=== PATIENT | female | born 1950 | race African-American/Black ===

== ENCOUNTER 2017-10-07 07:33 | Day surgery (SDC) | payer MEDICARE ==
[2017-10-07] MEDS ORDERED: NS 0.9% VIAL 10 ML ONE (08:02)
[2017-10-07] MEDS ORDERED: DUOVISC 1 KIT OPTH ONE (08:03)
[2017-10-07] MEDS ORDERED: LIDOCAINE 2% MPF 5 ML VIAL ONE (09:35)
[2017-10-07] MEDS ORDERED: TETRACAINE HCL 0.5% 2ML OPTH ONE (09:36)
[2017-10-07] MEDS ORDERED: LIDOCAINE HCL/PF 3.5% OPTH GEL ONE (09:37)
[2017-10-07] MEDS ORDERED: NA CHLORIDE 0.9% 500 ML ONE (09:37)
[2017-10-07] MEDS ORDERED: BUPIVACAINE 0.25% PF 30 ML VIAL ONE (09:37)
[2017-10-07] MEDS: PHENYLEPHRINE 10% OPTH 5ML ONE ×3 (09:45→09:55)
[2017-10-07] MEDS: CYCLOPENTOLATE 1% OPTH 2 ML ONE ×3 (09:45→09:55)
[2017-10-07] MEDS ORDERED: EPINEPHRINE/PF 1 MG/ML AMP ONE (09:56)
[2017-10-07] MEDS ORDERED: TRYPAN BLUE 0.5 ML SYR OPTH ONE (10:34)
[2017-10-07] MEDS ORDERED: MIDAZOLAM HCL 2 MG/2 ML INJ ONE (10:35)
[2017-10-07] MEDS ORDERED: FENTANYL CITR 100 MCG/2 ML ONE (10:35)
[2017-10-07] MEDS: LIDOCAINE 1% MPF 2 ML AMPULE ONE ×3 (10:39→10:54)
[2017-10-07] MEDS: BALANCED SALT IRRIG PLAIN 500 ML BTL IRR ONE ×2 (10:39→10:50)
[2017-10-07] MEDS: EPINEPHRINE/PF 1 MG/ML AMP ONE ×2 (10:40→10:50)
[2017-10-07] MEDS: MOXIFLOXACIN HCL 10 DROPS/ML **OR USE OPTH ONE ×2 (10:55→11:12)
--- NOTE | 2017-10-07 11:20 | P.BOP ---
Preoperative diagnosis: Nuclear sclerotic and cortical cataract OS Postoperative diagnosis: Same Primary procedure: Phacoemulsification with IOL, complex with use of trypan blue OS Estimated blood loss: None Anesthesia: Local (Topical) Complications: None Implants: [id number] +19.0 Transferred to: Other (Day surgery) Condition: Good
--- NOTE | 2017-10-07 22:53 | OP ---
Date of Procedure: 10/07/2017 Surgeon: Mary Rowley MD Anesthesiologist: 1. Yusra. 2. LANDRY Zambrano. 3. Cristhian No MD. Preoperative Diagnosis: Nuclear sclerotic and cortical cataract, (left eye). Operation Performed: Phacoemulsification with intraocular lens implant left eye complex with use of trypan blue. Anesthesia: Per cataract surgery. Complications: None. Description Of The Procedure: The patient was prepped with Betadine in day surgery. A drape was jennifer chelo over the left eye. A lid speculum was placed in the left eye. A conjunctival incision was made in the inferior nasal quadrant with Latoya scissors. A 1:1 mixture of 2% Xylocaine and 0.25% bupiv acaine was placed around the globe. Approximately 5 mL were used. A Honan balloon was placed on the eye for approximately 5 minutes. The patient was then transferred to the operative room where they were prepped and draped in the usual sterile fashion for ophthalmic surgery. A lid speculum was plac ed in the left eye. There was poor red reflex and a decision was made to use trypan blue. Paracente sis sites were made superiorly and inferiorly in the limbal cornea. Air was placed in the anterior c hamber. This was followed by trypan blue and then balanced salt solution was used to rinse out the t rypan blue from the eye. Viscoat was placed in the eye. The temporal conjunctiva was cut at the quiñones bus with Latoya scissors. A crescent blade was used to create a tunnel incision in the temporal co rnea. A keratome was used to enter the anterior chamber. Provisc was placed in the eye. A 360 degr ee capsulotomy was performed with a cystitome. The lens was hydrated with balanced salt solution and moved freely. The lens was removed in a stop and chop fashion. 3.96 CDE was required. Irrigation and aspiration were used to remove residual cortex. Provisc was placed in the eye and a ZCB 00+ 19.0 diopter lens was placed in the capsular bag without complications. Irrigation and aspiration were u sed to remove residual Viscoat. The paracentesis sites were hydrated with balanced salt solution. T he wound and paracentesis sites were inspected and found to be watertight. Intracameral Vigamox 0.07 cc was injected at the end of the procedure. The eye was irrigated with balanced salt solution. Th e eye was patched with a soft cotton patch and Casillas metal shield and the patient was returned to day s the [facility] in good condition. Comments: Akten was placed in the eye in Day Surgery and irrigated out of the eye with BSS in the OR . Preservative free 1% lidocaine was placed in the anterior chamber. This was followed by 1:5000 ep inephrine. The red reflex was poor and trypan blue was placed in the eye for 30 seconds, then irriga abhilash out with BSS. Then Viscoat was placed in the eye. Discharge Instructions: Ms. Perry was discharged to home in good condition. She is to follow up [facility] Dr. Rowley in the morning. JAYJAY/ADRIANA Voice ID: [id number] Report ID: [id number]
== END 2017-10-07 12:00 | disposition home or self-care (01) ==
LOC: OR 07:33
PROVIDERS: ATTEND Ophthalmology Retina Specialist
PROC: 08RK3JZ Replacement of Left Lens with Synthetic Substitute, Percutaneous Approach (ICD-10-PCS; principal; 2017-10-07 09:50)
DX: H25.12 Age-related nuclear cataract, left eye (principal); H25.012 Cortical age-related cataract, left eye; I10 Essential (primary) hypertension; Z83.3 Family history of diabetes mellitus
CPT/HCPCS: 66982; J0171 ×2; J2001; J2250; J3010

== ENCOUNTER 2017-12-09 07:56 | Day surgery (SDC) | payer MEDICARE ==
[2017-12-09] MEDS ORDERED: PHENYLEPHRINE 10% OPTH 5ML ONE (08:30)
[2017-12-09] MEDS ORDERED: NA CHLORIDE 0.9% 500 ML ONE (08:30)
[2017-12-09] MEDS ORDERED: LIDOCAINE 2% INJ, MPF 2 ML 0 ML ONE (08:31)
[2017-12-09] MEDS ORDERED: BUPIVACAINE 0.25% PF 10 ML VIAL ONE (08:31)
[2017-12-09] MEDS ORDERED: TETRACAINE HCL 0.5% 2ML OPTH ONE (08:31)
[2017-12-09] MEDS ORDERED: CYCLOPENTOLATE 1% OPTH 2 ML ONE (08:31)
[2017-12-09] MEDS ORDERED: LIDOCAINE HCL/PF 3.5% OPTH GEL ONE (08:33)
[2017-12-09] MEDS ORDERED: PHENYLEPHRINE 10% OPTH 5ML OPTH ONE ×2 (08:50→08:59)
[2017-12-09] MEDS ORDERED: CYCLOPENTOLATE 1% OPTH 2 ML OPTH ONE ×2 (08:50→08:59)
[2017-12-09] MEDS ORDERED: DUOVISC 1 KIT OPTH ONE (09:09)
[2017-12-09] MEDS ORDERED: NS 0.9% VIAL 10 ML ONE (09:09)
[2017-12-09] MEDS ORDERED: EPINEPHRINE/PF 1 MG/ML AMP ONE (09:09)
[2017-12-09] MEDS ORDERED: BALANCED SALT IRRIG PLAIN 500 ML BTL IRR ONE (09:09)
[2017-12-09] MEDS ORDERED: TRYPAN BLUE 0.5 ML SYR OPTH ONE (09:10)
[2017-12-09] MEDS ORDERED: MOXIFLOXACIN HCL 10 DROPS/ML **OR USE OPTH ONE (09:10)
[2017-12-09] MEDS ORDERED: LIDOCAINE 1% MPF 2 ML AMPULE ONE (10:07)
[2017-12-09] MEDS ORDERED: MIDAZOLAM HCL 2 MG/2 ML INJ ONE ×2 (10:12→10:20)
[2017-12-09] MEDS ORDERED: FENTANYL CITR 100 MCG/2 ML ONE (10:13)
--- NOTE | 2017-12-09 10:45 | P.BOP ---
Preoperative diagnosis: Nuclear sclerotic and cortical cataract OD Postoperative diagnosis: Same Primary procedure: Phacoemulsification with IOL OD Estimated blood loss: None Anesthesia: Local (Topical with anesthesia for cataract surgery) Complications: None Implants: ZCB00 +18.0 Transferred to: Other (Day surgery) Condition: Good
--- NOTE | 2017-12-09 21:52 | OP ---
Date of Procedure: 12/09/2017 Surgeon: Mary Rowley MD Anesthesiologist: 1. Lolita Early CRNA. 2. Cristhian No M.D. Preoperative Diagnosis: Nuclear sclerotic and cortical cataract OD (right eye). Operation Performed: Phacoemulsification with intraocular lens implant, right eye. Anesthesia: Per cataract surgery. Complications: None. Description Of Procedure: In the operating room the patient was prepped and draped in the usual sterile fashion for ophthalmic surgery. A lid speculum was placed in the right eye. Two paracentesis sites were made superiorly and inferiorly in the limbal cornea. Viscoat was placed in the anterior chamber and a crescent blade was used to make a corneal groove and tunnel, and a keratome was used to enter the anterior chamber. Provisc was placed in the anterior chamber and a 360 degree capsulotomy was performed with a cystitome. The lens was hydrodissected with BSS and rotated freely. The lens was removed with a stop and chop technique; 4.18 phaco CDE was used to remove the lens. Residual cortex was removed with the irrigation and aspiration. Provisc was placed in the capsular bag. A ZCB00 +18.0 lens was placed in the capsular bag without complications. Irrigation and aspiration was used to remove residual viscoelastic. The paracentesis sites were hydrated with BSS. The wound and paracentesis sites were inspected and found to be watertight. Vigamox 0.07 cc was placed intracamerally at the end of the procedure. The eye was irrigated with balanced salt solution. The eye was patched with a soft cotton patch and Casillas metal shield. The patient was returned to day surgery in good condition. Comments: Akten was placed in the eye in Day Surgery and irrigated out the eye with BSS in the OR. Preservative-free 1% lidocaine was placed in the anterior chamber prior to Viscoat. Discharge Instructions: Ms. Perry is discharged to home in good condition and is to follow up with Dr. Rowley in the morning. JAYJAY/ADRIANA Voice ID: [id number] Report ID: [id number]
== END 2017-12-09 11:18 | disposition home or self-care (01) ==
LOC: OR 07:56
PROVIDERS: ATTEND Ophthalmology Retina Specialist
PROC: 08RJ3JZ Replacement of Right Lens with Synthetic Substitute, Percutaneous Approach (ICD-10-PCS; principal; 2017-12-09 09:50)
DX: H25.11 Age-related nuclear cataract, right eye (principal); H25.011 Cortical age-related cataract, right eye; I10 Essential (primary) hypertension; Z83.3 Family history of diabetes mellitus
CPT/HCPCS: 66984; J0171; J2001; J2250; J3010; J3490

== ENCOUNTER 2018-03-26 12:24 | Emergency (ER) | payer MEDICARE ==
[2018-03-26 12:58] LABS: Absolute Lymphocytes (CBC) 1.6 K/uL (0.7-4.9); Absolute Monocytes 0.5 K/uL (0.1-1.3); Absolute Neutrophil 4.3 K/uL (1.8-8.0); Basophils % 0.9 % (0-1.3); Eosinophils % 0.9 % (0-4.4); Lymphocytes % 24.5 % (15.3-44.8); MCH 27.2 pg (27.0-35.0); MCV 85.4 fL (80-100); MPV 9.4 fL (7.6-11.3); Monocytes % 7.2 % (3.3-12.3); RBC Red Blood Cell Count 4.69 M/uL (3.86-4.86)
--- NOTE | 2018-03-26 13:07 | RAD REPORT ---
EXAM DESCRIPTION: RAD - Chest Single View - 03/26/2018 1:01 pm CLINICAL HISTORY: CHEST PAIN Chest pain. COMPARISON: CHEST SINGLE VIEW dated 04/18/2015; CHEST SINGLE VIEW dated 04/17/2015; CHEST SINGLE VIEW da abhilash 10/26/2008; CHEST PA AND LAT 2 VIEW dated 03/13/2005 FINDINGS: Portable technique limits examination quality. The lungs are grossly clear. The heart is mildly prominent size. Aortic atherosclerosis. No displaced fractures. IMPRESSION: No acute intrathoracic process suspected.
[2018-03-26 13:08] LABS: Protime INR 1.1
[2018-03-26 13:17] LABS: ALT/SGPT 25 U/L (12-78); AST/SGOT 15 U/L (15-37); Alkaline Phosphatase 56 U/L (45-117); BUN Blood Urea Nitrogen 11 mg/dL (7-18); Bicarbonate 27 mmol/L (21-32); Bilirubin Direct < 0.1 mg/dL (0-0.2); Bilirubin Total 0.3 mg/dL (0.2-1.0); Glucose Level 90 mg/dL (74-106); NT PRO-BNP 20 pg/mL (<125); Sodium Level 141 mmol/L (136-145); Troponin (Emerg Dept Use Only) < 0.02 ng/mL (0.0-0.045)
--- NOTE | 2018-03-26 13:39 | ER ---
Nurse's Notes [facility] Name: Nory Perry Age: 67 yrs Sex: Female : 1950 Arrival Date: 03/26/2018 Time: 12:26 Bed 6 Private MD: Abi Pat Diagnosis: Chest pain, unspecified Presentation: 03/26 12:34 Presenting complaint: Patient states: intermittent right-sided chest pain that began 1 aa5 week ago. Pt denies nausea, denies SOB. Transition of care: patient was not received from another setting of care. Onset of symptoms was March 2018. Risk Assessment: Do you want to hurt yourself or someone else? Patient reports no desire to harm self or others. Initial Sepsis Screen: Does the patient meet any 2 criteria? No. Patient's initial sepsis screen is negative. Does the patient have a suspected source of infection? No. Patient's initial sepsis screen is negative. Care prior to arrival: None. 12:34 Method Of Arrival: Ambulatory aa5 12:34 Acuity: SERENE 3 aa5 Historical: - Allergies: 12:37 No Known Allergies; aa5 - Home Meds: 12:37 carvedilol 3.125 mg oral tab 2 times per day [Active]; gabapentin 300 mg oral cap twice aa5 a day [Active]; aspirin 81 mg Oral chew 1 tab once daily [Active]; Iron CR Oral [Active]; Fish Oil oral oral [Active]; Vitamin D3 oral oral [Active]; - PMHx: 12:37 Hypertension; aa5 - PSHx: 12:37 Knee surgery; aa5 - Immunization history:: Flu vaccine is not up to date. - Social history:: Smoking status: Patient/guardian denies using tobacco. - Ebola Screening: : No symptoms or risks identified at this time. Screenin:46 Abuse screen: Denies threats or abuse. Denies injuries from another. Nutritional jl7 screening: No deficits noted. Tuberculosis screening: No symptoms or risk factors identified. Fall Risk IV access (20 points). Total Martinez Fall Scale indicates No Risk (0-24 pts). Assessment: 12:46 General: Appears in no apparent distress. uncomfortable, Behavior is calm, cooperative, jl7 appropriate for age. Pain: Complains of pain in anterior aspect of right upper chest Pain radiates to right scapular area Pain currently is 7 out of 10 on a pain scale. Quality of pain is described as dull, pressure, Pain began 1 week ago Is continuous. Neuro: Level of Consciousness is awake, alert, obeys commands, Oriented to person, place, time, situation. Cardiovascular: Heart tones S1 S2 present Patient's skin is warm and dry. Respiratory: Airway is patent Respiratory effort is even, unlabored, Respiratory pattern is regular, symmetrical, Breath sounds are clear bilaterally. Denies shortness of breath. GI: No signs and/or symptoms were reported involving the gastrointestinal system. Patient currently denies diarrhea, nausea, vomiting. : No signs and/or symptoms were reported regarding the genitourinary system. EENT: No signs and/or symptoms were reported regarding the EENT system. Derm: Skin is dry, Skin is normal, Skin temperature is warm. Musculoskeletal: No signs and/or symptoms reported regarding the musculoskeletal system. Vital Signs: 12:37 BP 160 / 93; Pulse 81; Resp 16 S; Temp 98.3(TE); Pulse Ox 98% on R/A; Weight 81.65 kg aa5 (R); Height 4 ft. 10 in. (147.32 cm) (R); Pain 0/10; 12:46 BP 174 / 88; Pulse 58; Resp 15; Pulse Ox 98% ; Pain 7/10; jl7 14:00 BP 160 / 85; Pulse 60; Resp 18; Pulse Ox 100% on R/A; hj 12:37 Body Mass Index 37.62 (81.65 kg, 147.32 cm) aa5 ED Course: 12:26 Patient arrived in ED. rg4 12:27 Abi Pat is Private Physician. rg4 12:34 Arm band placed on. aa5 12:35 Triage completed. aa5 12:41 José Miguel Crouch PA is PHCP. jr8 12:41 Orlando Garcia MD is Attending Physician. jr8 12:45 Sylvain Lowry RN is Primary Nurse. jl7 12:46 Patient has correct armband on for positive identification. Placed in gown. Bed in low jl7 position. Call light in reach. Side rails up X 1. site monitor on. Pulse ox on. NIBP on. Warm blanket given. 12:50 Initial lab(s) drawn, by me, sent to lab. Inserted saline lock: 22 gauge in left hj forearm, using aseptic technique. Blood collected. 13:00 X-ray completed. Portable x-ray completed in exam room. Patient tolerated procedure mh1 well. 13:02 XRAY Chest (1 view) In Process Unspecified. EDMS 13:11 EKG done, by pipe organ technician. reviewed by José Miguel DELUNA. at1 13:39 Shon Tellez MD is Referral Physician. jr8 13:59 No provider procedures requiring assistance completed. IV discontinued, intact, hj bleeding controlled, No redness/swelling at site. Pressure dressing applied. Administered Medications: No medications were administered Outcome: 13:39 Discharge ordered by . jr8 13:59 Discharged to home ambulatory, with family. hj 13:59 Condition: stable 13:59 Discharge instructions given to patient, family, Instructed on discharge instructions, follow up and referral plans. Demonstrated understanding of instructions, follow-up care. 14:02 Patient left the ED. Signatures: Dispatcher [employer] EDMS Vanessa Estrada 1 Ana Kenney, RN RN aa5 José Miguel Crouch PA PA jr8 Paulette Reed, mammographer EKG Tat1 Abdi Reza, CHRISTEN RN Maritza Martinez 4 Sylvain Lowry RN RN jl7
--- NOTE | 2018-03-26 13:40 | EDPHYS ---
Physician Documentation [facility] Name: Nory Perry Age: 67 yrs Sex: Female : 1950 Arrival Date: 03/26/2018 Time: 12:26 Bed 6 Private MD: Abi Pat ED Physician Orlando Garcia HPI: 03/26 13:37 This 67 yrs old Black Female presents to ER via Ambulatory with complaints of Chest jr8 Discomfort, Arm Pain, Shoulder Pain. 13:37 The patient or guardian reports chest pain that is located primarily in the anterior jr8 chest wall, right. Onset: gradually, 1 week(s) ago. The pain radiates to the right arm. Associated signs and symptoms: The patient has no apparent associated signs or symptoms. The chest pain is described as sharp. Duration: The patient or guardian reports multiple episodes, that are intermittent, that wax and wane, the episodes last approximately 1 hour(s). Modifying factors: The symptoms are alleviated by nothing. the symptoms are aggravated by nothing. Severity of pain: At its worst the pain was moderate in the emergency department the pain has resolved. The patient has not experienced similar symptoms in the past. The patient has not recently seen a physician. Historical: - Allergies: 12:37 No Known Allergies; aa5 - Home Meds: 12:37 carvedilol 3.125 mg oral tab 2 times per day [Active]; gabapentin 300 mg oral cap twice aa5 a day [Active]; aspirin 81 mg Oral chew 1 tab once daily [Active]; Iron CR Oral [Active]; Fish Oil oral oral [Active]; Vitamin D3 oral oral [Active]; - PMHx: 12:37 Hypertension; aa5 - PSHx: 12:37 Knee surgery; aa5 - Immunization history:: Flu vaccine is not up to date. - Social history:: Smoking status: Patient/guardian denies using tobacco. - Ebola Screening: : No symptoms or risks identified at this time. ROS: 13:37 Eyes: Negative for injury, pain, redness, and discharge, ENT: Negative for injury, jr8 pain, and discharge, Neck: Negative for injury, pain, and swelling, Respiratory: Negative for shortness of breath, cough, wheezing, and pleuritic chest pain, Abdomen/GI: Negative for abdominal pain, nausea, vomiting, diarrhea, and constipation, Back: Negative for injury and pain, MS/Extremity: Negative for injury and deformity, Skin: Negative for injury, rash, and discoloration, Neuro: Negative for headache, weakness, numbness, tingling, and seizure. 13:37 Cardiovascular: Positive for chest pain, Negative for edema, orthopnea, palpitations, paroxysmal nocturnal dyspnea. Exam: 13:37 Eyes: Pupils equal round and reactive to light, extra-ocular motions intact. Lids and jr8 lashes normal. Conjunctiva and sclera are non-icteric and not injected. Cornea within normal limits. Periorbital areas with no swelling, redness, or edema. ENT: Nares patent. No nasal discharge, no septal abnormalities noted. Tympanic membranes are normal and external auditory canals are clear. Oropharynx with no redness, swelling, or masses, exudates, or evidence of obstruction, uvula midline. Mucous membranes moist. Neck: Trachea midline, no thyromegaly or masses palpated, and no cervical lymphadenopathy. Supple, full range of motion without nuchal rigidity, or vertebral point tenderness. No Meningismus. Chest/axilla: Normal chest wall appearance and motion. Nontender with no deformity. No lesions are appreciated. Cardiovascular: Regular rate and rhythm with a normal S1 and S2. No gallops, murmurs, or rubs. Normal PMI, no JVD. No pulse deficits. Respiratory: Lungs have equal breath sounds bilaterally, clear to auscultation and percussion. No rales, rhonchi or wheezes noted. No increased work of breathing, no retractions or nasal flaring. Abdomen/GI: Soft, non-tender, with normal bowel sounds. No distension or tympany. No guarding or rebound. No evidence of tenderness throughout. Back: No spinal tenderness. No costovertebral tenderness. Full range of motion. Skin: Warm, dry with normal turgor. Normal color with no rashes, no lesions, and no evidence of cellulitis. MS/ Extremity: Pulses equal, no cyanosis. Neurovascular intact. Full, normal range of motion. Neuro: Awake and alert, GCS 15, oriented to person, place, time, and situation. Cranial nerves II-XII grossly intact. Motor strength 5/5 in all extremities. Sensory grossly intact. Cerebellar exam normal. Normal gait. Vital Signs: 12:37 BP 160 / 93; Pulse 81; Resp 16 S; Temp 98.3(TE); Pulse Ox 98% on R/A; Weight 81.65 kg aa5 (R); Height 4 ft. 10 in. (147.32 cm) (R); Pain 0/10; 12:46 BP 174 / 88; Pulse 58; Resp 15; Pulse Ox 98% ; Pain 7/10; jl7 14:00 BP 160 / 85; Pulse 60; Resp 18; Pulse Ox 100% on R/A; hj 12:37 Body Mass Index 37.62 (81.65 kg, 147.32 cm) aa5 MDM: 12:41 Patient medically screened. 8 13:37 Data reviewed: vital signs, nurses notes, lab test result(s), EKG, radiologic studies, jr8 plain films. Data interpreted: Pulse oximetry: on room air is 98 %. Interpretation: normal. Counseling: I had a detailed discussion with the patient and/or guardian regarding: the historical points, exam findings, and any diagnostic results supporting the discharge/admit diagnosis, lab results, radiology results, the need for outpatient follow up, a prefitter doors, to return to the emergency department if symptoms worsen or persist or if there are any questions or concerns that arise at home. ED course: Patient currently without pain. Troponin and ECG normal. Has been over a week since pain began. Will have patient follow up with cardiology. If worse to come back. Patient good with this plan . 03/26 12:41 Order name: Basic Metabolic Panel; Complete Time: 13:36 [facility] 03/26 12:41 Order name: CBC with Diff; Complete Time: 13:02 [facility] 03/26 12:41 Order name: LFT's; Complete Time: 13:36 [facility] 03/26 12:41 Order name: Magnesium; Complete Time: 13:36 [facility] 03/26 12:41 Order name: NT PRO-BNP; Complete Time: 13:36 [facility] 03/26 12:41 Order name: PT-INR; Complete Time: 13:14 [facility] 03/26 12:41 Order name: Troponin (emerg Dept Use Only); Complete Time: 13:36 [facility] 03/26 12:41 Order name: XRAY Chest (1 view); Complete Time: 13:14 [facility] 03/26 12:41 Order name: EKG; Complete Time: 12:42 8 03/26 12:41 Order name: Cardiac monitoring; Complete Time: 12:43 jr8 03/26 12:41 Order name: EKG - Nurse/Tech; Complete Time: 13:14 jr8 03/26 12:41 Order name: IV Saline Lock; Complete Time: 12:51 jr8 03/26 12:41 Order name: Labs collected and sent; Complete Time: 12:51 jr8 03/26 12:41 Order name: O2 Per Protocol; Complete Time: 12:43 jr8 03/26 12:41 Order name: O2 Sat Monitoring; Complete Time: 12:44 jr8 Administered Medications: No medications were administered Disposition: 15:48 Co-signature as Attending Physician, Orlando Garcia MD. rn Disposition: 03/26/18 13:39 Discharged to Home. Impression: Chest pain, unspecified. - Condition is Stable. - Discharge Instructions: Nonspecific Chest Pain, Cardiopulmonary Exercise Stress Test. - Medication Reconciliation Form, Thank You Letter, Antibiotic Education, Prescription Opioid Use form. - Follow up: Shon Tellez MD; When: 1 - 2 days; Reason: Recheck today's complaints, Continuance of care, Re-evaluation by your physician. - Problem is new. - Symptoms have improved. Signatures: Dispatcher [employer] EDMS Orlando Garcia MD MD rn Calderon, Audri RN RN aa5 José Miguel Crouch PA PA jr8 Abdi Reza RN RN hj Corrections: (The following items were deleted from the chart) 14:02 13:39 03/26/2018 13:39 Discharged to Home. Impression: Chest pain, unspecified. hj Condition is Stable. Forms are Medication Reconciliation Form, Thank You Letter, Antibiotic Education, Prescription Opioid Use. Follow up: Shon Tellez; When: 1 - 2 days; Reason: Recheck today's complaints, Continuance of care, Re-evaluation by your physician. Problem is new. Symptoms have improved. jr8
--- NOTE | 2018-03-27 05:18 | EKG ---
Test Date: 2018-03-26 Test Time: 12:50:54 [place] Operator: ALISSON MEASUREMENT RESULTS: Intervals: Rate: 56 [place]: 166 QRSD: 88 QT: 388 QTc: 374 Adkins: P: 11 [place]: 166 QRS: -13 T: 5 INTERPRETIVE STATEMENTS: Sinus bradycardia Minimal voltage criteria for LVH, may be normal variant Abnormal ECG Compared to ECG 04/18/2015 06:55:24 Left ventricular hypertrophy now present Electronically Signed On 03-27-18 05:17:32 DOCK CLERK by Shon Tellez
== END 2018-03-26 14:02 | disposition home or self-care (01) ==
LOC: ER 12:24
DX: R07.9 Chest pain, unspecified (principal); I10 Essential (primary) hypertension; Z79.82 Long term (current) use of aspirin
CPT/HCPCS: 36415; 71045; 80048; 80076; 83735; 83880; 84484; 85025; 85610; 93005; 99284

== ENCOUNTER 2019-11-11 12:15 | Emergency (ER) | payer MEDICARE ==
--- NOTE | 2019-11-11 13:08 | RAD REPORT ---
EXAM DESCRIPTION: CT - CTHCSPWOC - 11/11/2019 12:57 pm CLINICAL HISTORY: fall from standing;Pain COMPARISON: Thoracic Spine W/o Cont dated 11/11/2019 TECHNIQUE: Axial 5 mm thick images of the head were obtained. Axial 2 mm thick images of the cervic al spine were obtained with sagittal and coronal reconstruction images generated and reviewed. All CT scans are performed using dose optimization technique as appropriate and may include automated exposure control or mA/KV adjustment according to patient size. FINDINGS: No intracranial hemorrhage, mass, edema or acute intracranial finding. No suspicion for ac point lay ira infarction. No significant atrophy or chronic ischemic changes seen. Mastoid air cells are clear. No air-fluid level seen. Right ethmoid air cell opacification is present. No paranasal sinus or turb inate abnormality seen. No globe or orbit abnormality seen. Cervical body height and alignment are normal. No disk space narrowing. No fracture or acute bony abn ormality. Prominent degenerative changes are present at the dens anterior C1 articulation. There are calcifications of the transverse ligament. No significant encroachment into the central canal. Centra l canal detail is inherently limited. No paraspinal mass or hematoma. IMPRESSION: No hemorrhage, edema or acute CT Head finding. Negative CT cervical spine examination for acute or significant finding.
--- NOTE | 2019-11-11 13:12 | RAD REPORT ---
EXAM DESCRIPTION: CT - Thoracic Spine W/o Cont - 11/11/2019 12:57 pm CLINICAL HISTORY: Fall, thoracic pain COMPARISON: None. TECHNIQUE: Axial 3 mm thick images of the thoracic spine were obtained with sagittal and coronal rec onstruction images generated and reviewed. All CT scans are performed using dose optimization technique as appropriate and may include automated exposure control or mA/KV adjustment according to patient size. FINDINGS: Thoracic body height and alignment are normal. No disk space narrowing. No fracture or acu te bony abnormality. Scattered mild facet joint degenerative change present. Minimal endplate spurrin g changes are seen. No paraspinal mass or hematoma. A 3.5 centimeter round fluid attenuation mass present in the medial r ight lobe most likely an incidental cyst. The soft tissues of the upper abdomen are only partially im aged on this study. Central canal detail is inherently limited on CT imaging. IMPRESSION: CT thoracic spine examination shows scattered mild degenerative change but no acute find ings.
--- NOTE | 2019-11-11 13:15 | RAD REPORT ---
EXAM DESCRIPTION: Shoulder Right 2 View - 11/11/2019 12:57 pm CLINICAL HISTORY: fall from standing;Pain COMPARISON: No comparisons TECHNIQUE: Internal and external rotation views of the right shoulder were obtained. FINDINGS: There is no fracture or dislocation. No AC joint separation. Small inferiorly directed cl avicle spur present. Acromial humeral joint space normal with no abnormal soft tissue calcifications. No acute or suspicious findings. IMPRESSION: Minimal AC joint degenerative change. No acute bone or joint finding of the right should er.
--- NOTE | 2019-11-11 13:16 | RAD REPORT ---
EXAM DESCRIPTION: RAD - Knee Right 3 View - 11/11/2019 12:57 pm CLINICAL HISTORY: fall from standing;Pain COMPARISON: No comparisons FINDINGS: No fracture, dislocation or periosteal reaction.No joint effusion seen. Mild narrowing of the medial compartment seen with marginal spurring. There small spurs along the tibial spine and blue g the articular margins of the patella. No foreign body or other soft tissue abnormality. IMPRESSION: No gross fracture deformity seen. Patient does have medial compartment degenerative anir ge and minimal patellofemoral joint space degenerative change. Clinical concerns for internal derangement or occult bony injury could be further assessed with MR im aging.
--- NOTE | 2019-11-11 14:20 | EDPHYS ---
Physician Documentation [facility] Name: Nory Perry Age: 68 yrs Sex: Female : 1950 Arrival Date: 11/11/2019 Time: 12:17 Bed 17 Private MD: Abi Pat ED Physician Benton Adair HPI: 11/10 12:45 This 68 yrs old Black Female presents to ER via Ambulatory with complaints of Fall cp Injury, Head Injury-Adult. 12:45 Details of fall: The patient fell from an upright position, while walking, and struck cp wood kailyn. Onset: The symptoms/episode began/occurred yesterday. Associated injuries: The patient sustained injury to the head, pain, neck injury, tenderness, right shoulder, painful injury, right knee, painful injury. Severity of symptoms: in the emergency department the symptoms are unchanged, despite home interventions. Patient reports falling and hitting head, right shoulder and right knee on wooden floor yesterday while playing with grandchild. Historical: - Allergies: 12:26 No Known Allergies; ca1 - Home Meds: 12:26 carvedilol 6.25 mg oral tab 1 tab 2 times per day [Active]; aspirin 81 mg Oral chew 1 ca1 tab once daily [Active]; Fish Oil Oral [Active]; Iron CR Oral [Active]; Vitamin D3 Oral [Active]; - PMHx: 12:26 Hypertension; ca1 - PSHx: 12:26 Knee surgery; ca1 - Immunization history:: Adult Immunizations up to date. - Social history:: Smoking status: Patient denies any tobacco usage or history of. ROS: 12:50 Constitutional: Negative for body aches, chills, fever. cp 12:50 Eyes: Negative for injury, pain, redness, and discharge. cp 12:50 ENT: Negative for ear pain, sore throat, difficulty swallowing, difficulty handling secretions. 12:50 Neck: Positive for pain with movement, tenderness, Negative for stiffness. 12:50 Cardiovascular: Negative for chest pain, palpitations. 12:50 Respiratory: Negative for cough, shortness of breath, wheezing. 12:50 Abdomen/GI: Negative for abdominal pain, nausea, vomiting, and diarrhea. 12:50 Back: Negative for pain at rest, pain with movement. 12:50 MS/extremity: Positive for pain, of the right shoulder and right knee, Negative for decreased range of motion, deformity, paresthesias. 12:50 Neuro: Positive for headache, Negative for altered mental status, loss of consciousness, numbness, seizure activity, syncope, weakness. 12:50 All other systems are negative. Exam: 12:57 Constitutional: The patient appears in no acute distress, alert, awake, cp non-diaphoretic, non-toxic, well developed, well nourished. 12:57 Head/face: Noted is ecchymosis, that is mild, of the right muslim, swelling, that is cp mild, of the right muslim, tenderness, that is moderate, of the right muslim. 12:57 Eyes: Periorbital structures: appear normal, Pupils: equal, round, and reactive to light and accomodation, Extraocular movements: intact throughout, Conjunctiva: normal, no exudate, no injection, Sclera: no appreciated abnormality, Lids and lashes: appear normal, bilaterally. 12:57 ENT: External ear(s): are unremarkable, Ear canal(s): are normal, clear, TM's: dullness, bilaterally, Nose: is normal, Mouth: Lips: moist, Oral mucosa: moist, Posterior pharynx: is normal, airway is patent. 12:57 Neck: C-spine: vertebral tenderness, that is mild, appreciated at C5 and C6, crepitus, is not appreciated, ROM/movement: pain, that is mild, with extension, limited range of motion, is not appreciated, nuchal rigidity, is not appreciated. 12:57 Chest/axilla: Inspection: normal, Palpation: is normal, no crepitus, no tenderness. 12:57 Cardiovascular: Rate: normal, Rhythm: regular, Edema: is not appreciated, JVD: is not appreciated. 12:57 Respiratory: the patient does not display signs of respiratory distress, Respirations: normal, no use of accessory muscles, no retractions. 12:57 Abdomen/GI: Inspection: abdomen appears normal, Palpation: abdomen is soft and non-tender, in all quadrants. 12:57 Back: vertebral tenderness, is not appreciated. 12:57 Musculoskeletal/extremity: Joints: the right shoulder displays pain at rest, painful range of motion, tenderness, the right knee displays painful range of motion, tenderness. 12:57 Neuro: Orientation: to person, place \T\ time. Mentation: is normal, Cerebellar function: is grossly normal, Motor: moves all fours, strength is normal, Sensation: is normal. Vital Signs: 12:24 BP 181 / 81; Pulse 80; Resp 17 S; Temp 99(TE); Pulse Ox 100% on R/A; Weight 81.65 kg ca1 (R); Height 4 ft. 11 in. (149.86 cm) (R); 12:39 BP 156 / 70; Pulse 70; Resp 16; Pulse Ox 98% ; bp 13:43 BP 143 / 79; Pulse 57; Resp 17; Pulse Ox 97% ; bp 14:34 BP 150 / 82; Pulse 57; Resp 16; Temp 98.9; Pulse Ox 97% ; bp 12:24 Body Mass Index 36.36 (81.65 kg, 149.86 cm) ca1 MDM: 12:32 Patient medically screened. cp 13:00 Differential diagnosis: closed head injury, contusion, fracture, multiple trauma. cp 14:17 Data reviewed: vital signs, nurses notes, radiologic studies, CT scan, plain films. cp 14:17 Counseling: I had a detailed discussion with the patient and/or guardian regarding: the cp historical points, exam findings, and any diagnostic results supporting the discharge/admit diagnosis, radiology results, the need for outpatient follow up, a family practitioner, to return to the emergency department if symptoms worsen or persist or if there are any questions or concerns that arise at home. Response to treatment: the patient's symptoms have markedly improved after treatment, and as a result, I will discharge patient. ED course: VSS. Radiology studies negative for fractures. Pain improved. Will discharge to home for continued monitoring. 11/10 12:38 Order name: CT Head C Spine; Complete Time: 13:27 cp 11/10 12:38 Order name: CT Thoracic Spine Wo Cont; Complete Time: 13:27 cp 11/10 12:38 Order name: XRAY Shoulder RIGHT 2 view; Complete Time: 13:27 cp 11/10 12:38 Order name: XRAY Knee RIGHT 3 view; Complete Time: 13:27 cp 11/10 13:29 Order name: Misc. Order: may remove c-collar; Complete Time: 14:20 cp Administered Medications: 13:45 Drug: Ibuprofen 800 mg Route: PO; bp 14:22 Follow up: Response: Pain is decreased bp 13:45 Drug: Hydrocodone-Acetaminophen (7.5 mg-325 mg) 1 tabs Route: PO; bp 14:22 Follow up: Response: Pain is decreased bp Disposition: 14:30 Chart complete. cp 11/11 14:02 Co-signature as Attending Physician, Benton Adair MD I agree with the assessment and kdr plan of care. Disposition: 11/11/19 14:18 Discharged to Home. Impression: Fall on same level from slipping, tripping and stumbling, Headache, Pain in right shoulder, Pain in right knee. - Condition is Stable. - Discharge Instructions: Head Injury, Adult, Shoulder Pain, Knee Pain. - Prescriptions for Ibuprofen 800 mg Oral Tablet - take 1 tablet by ORAL route every 8 hours As needed take with food; 30 tablet. Tramadol 50 mg Oral Tablet - take 1 tablet by ORAL route every 8 hours as needed. no driving while taking medication; 12 tablet. - Medication Reconciliation Form, Thank You Letter, Antibiotic Education, Prescription Opioid Use form. - Follow up: Private Physician; When: 2 - 3 days; Reason: Worsening of condition. - Problem is new. - Symptoms have improved. Signatures: Dispatcher [employer] EDMS Benton Adair MD MD [facility] Jair Callahan PA PA cp Tito Choudhary RN RN Susana Live RN RN ca1 Corrections: (The following items were deleted from the chart) 11/10 14:34 14:18 11/11/2019 14:18 Discharged to Home. Impression: Fall on same level from bp slipping, tripping and stumbling; Headache; Pain in right shoulder; Pain in right knee. Condition is Stable. Forms are Medication Reconciliation Form, Thank You Letter, Antibiotic Education, Prescription Opioid Use. Follow up: Private Physician; When: 2 - 3 days; Reason: Worsening of condition. Problem is new. Symptoms have improved. cp
--- NOTE | 2019-11-11 14:20 | ER ---
Nurse's Notes [facility] Name: Nory Perry Age: 68 yrs Sex: Female : 1950 Arrival Date: 11/11/2019 Time: 12:17 Bed 17 Private MD: Abi Pat Diagnosis: Fall on same level from slipping, tripping and stumbling;Headache;Pain in right shoulder;Pain in right knee Presentation: 11/10 12:24 Chief complaint: Patient states: tripped and fell yesterday. Hit R side of head on the ca1 wooden floor. Denies LOC. Not on blood thinners. C/O pain T amish. Denies N/V/Dizziness. Coronavirus screen: Patient denies a cough. Patient denies shortness of breath or difficulty breathing. Patient denies measured and/or subjective temperature greater than 100.4F prior to today's visit. Patient denies travel on a cruise ship or to a country the [facility] currently lists as an affected area. Patient denies contact with known and/or suspected case of COVID-19. Proceed with normal triage. Ebola Screen: Patient negative for fever greater than or equal to 101.5 degrees Fahrenheit, and additional compatible Ebola Virus Disease symptoms Patient denies exposure to infectious person. Patient denies travel to an Ebola-affected area in the 21 days before illness onset. No symptoms or risks identified at this time. Initial Sepsis Screen: Does the patient meet any 2 criteria? No. Patient's initial sepsis screen is negative. Does the patient have a suspected source of infection? No. Patient's initial sepsis screen is negative. Risk Assessment: Do you want to hurt yourself or someone else? Patient reports no desire to harm self or others. Onset of symptoms was November 11, 2019. 12:24 Method Of Arrival: Ambulatory ca1 12:24 Acuity: SERENE 4 ca1 Triage Assessment: 12:25 General: Appears in no apparent distress. uncomfortable, Behavior is cooperative, bp appropriate for age, anxious. Pain: Complains of pain in head and back. EENT: No deficits noted. Neuro: No deficits noted. Cardiovascular: No deficits noted. Respiratory: No deficits noted. GI: No signs and/or symptoms were reported involving the gastrointestinal system. : No signs and/or symptoms were reported regarding the genitourinary system. Derm: No deficits noted. Musculoskeletal: No deficits noted. Historical: - Allergies: 12: No Known Allergies; ca1 - Home Meds: 12: carvedilol 6.25 mg oral tab 1 tab 2 times per day [Active]; aspirin 81 mg Oral chew 1 ca1 tab once daily [Active]; Fish Oil Oral [Active]; Iron CR Oral [Active]; Vitamin D3 Oral [Active]; - PMHx: 12:26 Hypertension; ca1 - PSHx: 12:26 Knee surgery; ca1 - Immunization history:: Adult Immunizations up to date. - Social history:: Smoking status: Patient denies any tobacco usage or history of. Screenin:30 Abuse screen: Denies threats or abuse. Denies injuries from another. Nutritional bp screening: No deficits noted. Tuberculosis screening: No symptoms or risk factors identified. Fall Risk Fall in past 12 months (25 points). No secondary diagnosis (0 pts). No IV (0 pts). Ambulatory Aid- None/Bed Rest/Nurse Assist (0 pts). Gait- Normal/Bed Rest/Wheelchair (0 pts) Mental Status- Oriented to own ability (0 pts). Assessment: 12:30 General: SEE TRIAGE NOTE. bp 12:40 Reassessment: CC PLACED BY PROVIDER. bp 13:45 Reassessment: CC CLEARED FOR REMOVAL BY PROVIDER. PT REMAINS NEURO INTACT. bp 14:33 Reassessment: PT D/C HOME AMBULATORY, DX WITH FALL AND HEADACHE. bp Vital Signs: 12:24 BP 181 / 81; Pulse 80; Resp 17 S; Temp 99(TE); Pulse Ox 100% on R/A; Weight 81.65 kg ca1 (R); Height 4 ft. 11 in. (149.86 cm) (R); 12:39 BP 156 / 70; Pulse 70; Resp 16; Pulse Ox 98% ; bp 13:43 BP 143 / 79; Pulse 57; Resp 17; Pulse Ox 97% ; bp 14:34 BP 150 / 82; Pulse 57; Resp 16; Temp 98.9; Pulse Ox 97% ; bp 12:24 Body Mass Index 36.36 (81.65 kg, 149.86 cm) ca1 ED Course: 12:17 Patient arrived in ED. ag5 12:17 Abi Pat is Private Physician. ag5 12:26 Triage completed. ca1 12:26 Arm band placed on right wrist. ca1 12:27 Jair Callahan PA is PHCP. cp 12:27 Benton Adair MD is Attending Physician. cp 12:30 Patient has correct armband on for positive identification. Bed in low position. Call bp light in reach. Side rails up X2. 12:34 Tito Choudhary, RN is Primary Nurse. bp 12:57 CT Head C Spine In Process Unspecified. EDMS 12:57 CT Thoracic Spine Wo Cont In Process Unspecified. EDMS 12:57 XRAY Shoulder RIGHT 2 view In Process Unspecified. EDMS 12:57 XRAY Knee RIGHT 3 view In Process Unspecified. EDMS 14:21 No provider procedures requiring assistance completed. Patient did not have IV access bp during this emergency room visit. Administered Medications: 13:45 Drug: Ibuprofen 800 mg Route: PO; bp 14:22 Follow up: Response: Pain is decreased bp 13:45 Drug: Hydrocodone-Acetaminophen (7.5 mg-325 mg) 1 tabs Route: PO; bp 14:22 Follow up: Response: Pain is decreased bp Outcome: 14:18 Discharge ordered by MD. cp 14:22 Discharged to home ambulatory. bp 14:22 Condition: stable 14:22 Discharge instructions given to patient, Instructed on discharge instructions, follow up and referral plans. medication usage, Demonstrated understanding of instructions, follow-up care, medications, Prescriptions given X 2. 14:34 Patient left the ED. bp Signatures: Dispatcher [employer] EDAZ Jair Callahan PA PA cp Tito Choudhary, RN RN bp Susana Monroy RN RN [facility] ag[facility]
[2019-11-11] MEDS ORDERED: IBUPROFEN 400 MG TAB ONE (14:24)
[2019-11-11] MEDS ORDERED: HYDROCODONE/APAP 7.5/325 MG TAB ONE (14:24)
[2019-11-11 14:42] VITALS: O2SAT 97
[2019-11-11 14:43] VITALS: BP 150/82; TEMP 98.9
== END 2019-11-11 14:34 | disposition home or self-care (01) ==
LOC: ER 12:15
DX: M25.511 Pain in right shoulder (principal); M25.561 Pain in right knee; W01.0XXA Fall on same level from slipping, tripping and stumbling without subsequent striking against object, initial encounter; Y93.89 Activity, other specified; Y92.9 Unspecified place or not applicable; I10 Essential (primary) hypertension; Z79.82 Long term (current) use of aspirin
CPT/HCPCS: 70450; 72125; 72128; 99283

== ENCOUNTER 2020-10-25 09:49 | Observation (INO) | payer MEDICARE ==
[2020-10-25 10:33] LABS: Absolute Lymphocytes (CBC) 1.4 K/uL (0.7-4.9); Basophils % 0.8 % (0-1.3); Hematocrit 40.6 % (36.0-45.0); Lymphocytes % 21.5 % (15.3-44.8); MPV 9.6 fL (7.6-11.3)
[2020-10-25 10:48] LABS: BUN Blood Urea Nitrogen 13 mg/dL (7-18); Bicarbonate 29 mmol/L (21-32); Glucose Level 95 mg/dL (74-106); NT PRO-BNP 56 pg/mL (<125); Potassium 4.1 mmol/L (3.5-5.1); Sodium Level 144 mmol/L (136-145); Troponin (Emerg Dept Use Only) < 0.02 ng/mL (0.0-0.045)
--- NOTE | 2020-10-25 10:48 | RAD REPORT ---
EXAM DESCRIPTION: Barry Single View10/25/2020 10:30 am CLINICAL HISTORY: Chest pain COMPARISON: 2017 FINDINGS: The lungs appear clear of acute infiltrate. The heart is normal size IMPRESSION: No acute abnormalities displayed
--- NOTE | 2020-10-25 11:26 | EDPHYS ---
Physician Documentation [facility] Name: Nory Perry Age: 69 yrs Sex: Female : 1950 Arrival Date: 10/25/2020 Time: 09:52 Bed 17 Private MD: Abi Pat ED Physician Orlando Garcia HPI: 10/25 10:10 This 69 yrs old Black Female presents to ER via Ambulatory with complaints of Chest rn Pain. 10:10 The patient or guardian reports chest pain that is located primarily in the substernal rn area. Onset: 5 day(s) ago. The pain radiates to the right arm. Associated signs and symptoms: Pertinent positives: nausea, Pertinent negatives: abdominal pain, cough, diaphoresis, dizziness, palpitations, recent travel, shortness of breath, syncope, vomiting. The chest pain is described as a heaviness. Duration: The patient or guardian reports multiple episodes, that are intermittent. Modifying factors: The symptoms are alleviated by nothing. the symptoms are aggravated by exertion. Severity of pain: At its worst the pain was moderate in the emergency department the pain has improved. The patient has experienced a previous episode. The patient has not recently seen a physician. 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 No fever or cough. Reports worse with exertion, happening more frequently. No abd pain. . Historical: - Allergies: 10:07 No Known Allergies; hb - PMHx: 10:07 Hypertension; hb - Immunization history:: Adult Immunizations up to date. - Social history:: Smoking status: Patient denies any tobacco usage or history of. - Family history:: not pertinent. - Hospitalizations: : No recent hospitalization is reported. ROS: 10:10 Constitutional: Negative for fever, chills, and weight loss, Eyes: Negative for injury, rn pain, redness, and discharge, Neck: Negative for injury, pain, and swelling, Cardiovascular: Negative for palpitations, and edema, Respiratory: Negative for shortness of breath, cough, wheezing, and pleuritic chest pain, Abdomen/GI: Negative for abdominal pain, vomiting, diarrhea, and constipation, Back: Negative for injury and pain, MS/Extremity: Negative for injury and deformity, Skin: Negative for injury, rash, and discoloration, Neuro: Negative for headache, weakness, numbness, tingling, and seizure. 10:10 All other systems are negative. rn Exam: 10:10 Constitutional: This is a well developed, well nourished patient who is awake, alert, rn and in no acute distress. Head/Face: Normocephalic, atraumatic. Eyes: Periorbital areas with no swelling, redness, or edema. Cardiovascular: Regular rate and rhythm. No pulse deficits. Respiratory: No increased work of breathing, no retractions or nasal flaring. Abdomen/GI: soft, non-tender, neg singleton Skin: Warm, dry MS/ Extremity: Pulses equal, no cyanosis. Neurovascular intact. Full, normal range of motion. Equal circumference. Neuro: Awake and alert, GCS 15 10:22 ECG was reviewed by the Attending Physician. rn Vital Signs: 10:07 BP 190 / 85; Pulse 82; Resp 16; Temp 97.8; Pulse Ox 98% on R/A; Pain 7/10; hb 10:09 Pulse 61; Resp 18; Pulse Ox 100% on R/A; tr6 11:17 BP 185 / 84; Pulse 48; Resp 16; Pulse Ox 100% on R/A; tr6 MDM: 10:01 Patient medically screened. rn 11:22 Differential diagnosis: abnormal EKG, acute myocardial infarction, acute pericarditis, rn anxiety, coronary artery disease chest wall pain, costochondritis, esophagitis, gastritis, gastroesophageal reflux disease (GERD), pericarditis, pleurisy, pneumothorax, stable angina, unstable angina. The patient was given aspirin in the Emergency Department. 11:22 HEART Score: History: Moderately Suspicious (1), ECG: Normal (0), Age: > or = 65 years rn (2), Risk Factors: 1 or 2 risk factors (1), Troponin: < or = 1 x Normal Limit (0). GERARD Risk Score: 1 - patient's age is greater or equal to 65 years, 1 - ASA use in past 7 days, 1 - Recent [<24hrs] Severe Angina, TOTAL SCORE = 3. Data reviewed: vital signs, nurses notes, lab test result(s), EKG, radiologic studies, plain films, and as a result, I will admit patient. Counseling: I had a detailed discussion with the patient and/or guardian regarding: the historical points, exam findings, and any diagnostic results supporting the discharge/admit diagnosis, lab results, radiology results, the need for further work-up and treatment in the hospital. Response to treatment: the patient's symptoms have resolved after treatment, the patient's condition has returned to base line, the patient is now symptom free, and as a result, I will admit patient. Admission orders: after a detailed discussion of the patient's condition and case, the admit orders are written by me. ED course: Pt now chest pain free, no clear etiology of chest pain, but pressure, radiates to right arm, worse with exertion and increasing in frequency, will admit for cardiac w/u and cardiology consultation. . 10/25 10:10 Order name: Basic Metabolic Panel; Complete Time: 10/25 10:10 Order name: CBC with Diff; Complete Time: 10/25 10:10 Order name: NT PRO-BNP; Complete Time: 10/25 10:10 Order name: Troponin (emerg Dept Use Only); Complete Time: 10/25 10:10 Order name: XRAY Chest (1 view); Complete Time: 10/25 10:10 Order name: EKG; Complete Time: 10:10/25 10:10 Order name: Cardiac monitoring; Complete Time: 10:10/25 10:10 Order name: EKG - Nurse/Tech; Complete Time: 10/25 10:10 Order name: IV Saline Lock; Complete Time: 10/25 10:10 Order name: Labs collected and sent; Complete Time: 10/25 10:10 Order name: O2 Per Protocol; Complete Time: 10/25 10:10 Order name: O2 Sat Monitoring; Complete Time: rn EC: Rate is 52 beats/min. Rhythm is regular. QRS Needles is Normal. WI interval is normal. QRS rn interval is normal. No Q waves. T waves are Normal. No ST changes noted. Clinical impression: Sinus bradycardia. Interpreted by me. Reviewed by me. Administered Medications: 12:08 Drug: Aspirin Chewable Tablet 324 mg Route: PO; tr6 Disposition Summary: 10/25/20 11:25 Hospitalization Ordered Hospitalization Status: Observation rn Provider: Pepe Cyr rn Location: Telemetry/MedSurg (observation) rn Condition: Stable rn Problem: new rn Symptoms: have improved rn Bed/Room Type: Standard rn Room Assignment: 229(10/25/20 15:37) mt Diagnosis - Chest pain, unspecified rn Forms: - Medication Reconciliation Form rn - SBAR form rn Signatures: Dispatcher [employer] EDOrlando Coyne MD MD rn Baxter, Heather, RN RN hb Thompson, Moriah mt Ramnanan, Tiffany, RN RN tr6 Corrections: (The following items were deleted from the chart) 15:37 11:25 rn ok
--- NOTE | 2020-10-25 11:26 | ER ---
Nurse's Notes [facility] Name: Nory Perry Age: 69 yrs Sex: Female : 1950 Arrival Date: 10/25/2020 Time: 09:52 Bed 17 Private MD: Abi Pat Diagnosis: Chest pain, unspecified Presentation: 10/25 10:07 Chief complaint: Intermittent right sided chest pain that radiates to right arm x 2 hb days. Coronavirus screen: At this time, the client does not indicate any symptoms associated with coronavirus-19. Ebola Screen: No symptoms or risks identified at this time. Initial Sepsis Screen: Does the patient meet any 2 criteria? No. Patient's initial sepsis screen is negative. Does the patient have a suspected source of infection? No. Patient's initial sepsis screen is negative. Risk Assessment: Do you want to hurt yourself or someone else? Patient reports no desire to harm self or others. Onset of symptoms was October 24, 2020. 10:07 Method Of Arrival: Ambulatory hb 10:07 Acuity: SERENE 3 hb Historical: - Allergies: 10:07 No Known Allergies; hb - PMHx: 10:07 Hypertension; hb - Immunization history:: Adult Immunizations up to date. - Social history:: Smoking status: Patient denies any tobacco usage or history of. - Family history:: not pertinent. - Hospitalizations: : No recent hospitalization is reported. Screenin:09 Abuse screen: Denies threats or abuse. Denies injuries from another. Nutritional tr6 screening: No deficits noted. Tuberculosis screening: No symptoms or risk factors identified. Fall Risk None identified. Assessment: 10:27 General: Appears in no apparent distress. well groomed, Behavior is calm, cooperative, tr6 appropriate for age. Pain: Complains of pain in chest pain Pain radiates to right arm Pain began gradually. Neuro: No deficits noted. Cardiovascular: Pulses are all present. Rhythm is sinus bradycardia Chest pain radiates to right arm(s). Respiratory: No deficits noted. GI: No deficits noted. : No deficits noted. EENT: No deficits noted. Derm: No deficits noted. Musculoskeletal: No deficits noted. Vital Signs: 10:07 BP 190 / 85; Pulse 82; Resp 16; Temp 97.8; Pulse Ox 98% on R/A; Pain 7/10; hb 10:09 Pulse 61; Resp 18; Pulse Ox 100% on R/A; tr6 11:17 BP 185 / 84; Pulse 48; Resp 16; Pulse Ox 100% on R/A; tr6 ED Course: 09:52 Patient arrived in ED. mr 09:52 GallatinMark mejiaa is Private Physician. mr 10:00 Orlando Garcia MD is Attending Physician. rn 10:07 Triage completed. hb 10:07 Arm band placed on. hb 10:08 Jayshree Moy, CHRISTEN is Primary Nurse. tr6 10:09 Resting quietly. Awaiting lab results. tr6 10:09 Patient has correct armband on for positive identification. Bed in low position. Call tr6 light in reach. Side rails up X 1. nursing center tutor on. Pulse ox on. NIBP on. Door closed. Noise minimized. Visitors limited. Lights dimmed. Moved to private room. Warm blanket given. Diet: Patient is NPO. 10:09 No provider procedures requiring assistance completed. Patient maintains SpO2 tr6 saturation greater than 95% on room air. 10:23 EKG done, by ED staff, reviewed by Orlando Garcia MD. 3 10:27 Inserted saline lock: 20 gauge in right antecubital area, using aseptic technique. tr6 Blood collected. 10:30 XRAY Chest (1 view) In Process Unspecified. EDMS 11:25 Pepe Cyr is Hospitalizing Provider. rn 16:56 Patient admitted, IV remains in place. tr6 Administered Medications: 12:08 Drug: Aspirin Chewable Tablet 324 mg Route: PO; tr6 Outcome: 11:25 Decision to Hospitalize by Provider. rn 16:55 Admitted to Med/surg accompanied by layne, via wheelchair, room 229. tr6 16:56 Condition: stable tr6 16:56 Instructed on the need for admit, Demonstrated understanding of instructions, follow-up care, medications. 16:56 Patient left the ED. tr6 Signatures: Dispatcher [employer] EDSC Smita Arzate Orlando Garcia MD MD rn Baxter, Heather, RN RN hb Herrera, Deanna 3 Jayshree Moy RN RN tr6
[2020-10-25] MEDS ORDERED: ASPIRIN 81 MG CHEWABLE TABLET ONE (12:27)
--- NOTE | 2020-10-25 12:34 | P.HP ---
Certification for Inpatient Patient admitted to: Observation With expected LOS: <2 Midnights Patient will require the following post-hospital care: None Practitioner: I am a practitioner with admitting privileges, knowledge of patient current condition, hospital course, and medical plan of care. Services: Services provided to patient in accordance with Admission requirements found in Title 42 Section 412.3 of the Code of Federal Regulations Patient History Date of Service: 10/25/20 Primary Care Provider: LEISA Schrader Reason for admission: chest pain rule out History of Present Illness: This is a 69 y/o M w/ HTN who presents today with intermittent R sided/substernal chest pain x 4-5 days. She reports the pain radiates to R shoulder. She has never experienced this chest pain before in the past. She states the pain feels similar to indigestion but has no relief with tums. She does experience some relief with aleve. [facility] and reports everything was normal. Her last PCP visit was June 2020. Denies any nausea, vomiting, fever, chills, palpitations, SOB. Negative troponins BNP unremarkable CXR: No acute abnormalities displayed Allergies NKDA Allergy (Uncoded 12/05/17 11:06) Unknown Home Medications: Aspirin Chewable [Aspirin Chewable*] 81 mg PO Q48H 04/17/15 Biotin 5,000 mcg PO DAILY 10/02/17 Cholecalciferol (Vitamin D3) [Vitamin D 400 IU TAB*] 400 unit PO DAILY 10/02/17 Docosahexanoic AC/Epa [Fish Oil 1,000 MG*] 1,000 mg PO DAILY 10/02/17 Iron 65 mg PO DAILY 10/02/17 carvediloL [Coreg*] 3.125 mg PO BID 10/02/17 - Past Medical/Surgical History Diabetic: No -: hypertension -: left knee sx Psychosocial/ Personal History: lives at home with - Family History Mother -: Diabetes - Social History Smoking Status: Never smoker Alcohol use: No CD- Drugs: No Caffeine use: No Physical Examination - Physical Exam General: Alert, In no apparent distress, Oriented x3, Cooperative HEENT: Atraumatic, Normocephalic, Mucous membr. moist/pink Neck: Supple Respiratory: Clear to auscultation bilaterally, Normal air movement Cardiovascular: No edema, Normal S1 S2, Other (bradycardia) Capillary refill: <2 Seconds Gastrointestinal: Normal bowel sounds, Soft and benign, No tenderness, No rebound Musculoskeletal: No swelling Integumentary: No rashes, No erythema Neurological: Normal speech, Normal tone, Normal affect - Studies Laboratory Data (last 24 hrs) 10/25/20 10:24: WBC 6.70, Hgb 12.8, Hct 40.6, Plt Count 187 10/25/20 10:24: Sodium 144, Potassium 4.1, BUN 13, Creatinine 0.88, Glucose 95 Assessment and Plan - Plan impression: chest pain bradycardia HTN plan: chest pain: pt will be admitted for observation. initial troponin negative. will monitor cardiac enzymes and telemetry. will obtain echo. TSH/T4, lipid panel pending. aspirin 81. cardiology has been consulted. await recommendations. bradycardia: pt currently takes carvedilol 6.25mg BID. will decrease carvedilol to 3.25mg BID. continue to monitor on telemetry. HTN: BP elevated today. currently takes lisinopril 10mg daily. will increase lisinopril 20mg BID. continue to monitor BP and adjust meds as needed. VTE: lovenox Code: full Dispo: anticipate dc home in 24h Discharge Plan: Home Plan to discharge in: 24 Hours - Advance Directives Does patient have a Living Will: No Does patient have a Durable POA for Healthcare: No - Code Status/Comfort Care Code Status Assessed: Yes Code Status: Full Code Time Spent Managing Pts Care (In Minutes): 55
[2020-10-25] MEDS ORDERED: NITROGLYCERIN 0.4 MG/TAB SL PRN (16:58)
[2020-10-25] MEDS ORDERED: ACETAMINOPHEN 500 MG TAB PO PRN (16:58)
[2020-10-25] MEDS ORDERED: ONDANSETRON 4 MG/2 ML VIAL IV PRN (16:58)
[2020-10-25 17:04] VITALS: BMI 37.6
[2020-10-25] MEDS: carvediloL 3.125 MG TAB PO SCH (17:45)
[2020-10-25] MEDS: ENOXAPARIN 40 MG/0.4 ML SQ SCH (17:45)
[2020-10-25] MEDS: lisinopriL 20 MG TAB PO SCH (21:11)
[2020-10-26 04:48] LABS: Magnesium 1.6 mg/dL (1.8-2.4); Phosphorus 3.8 mg/dL (2.5-4.9); Potassium 3.8 mmol/L (3.5-5.1); Thyroid Stimulating Hormone 0.861 uIU/mL (0.360-3.740)
[2020-10-26 05:37] LABS: Urine Appearance CLEAR (Clear); Urine Blood NEGATIVE (Negative); Urine Color YELLOW (Yellow); Urine Glucose NEGATIVE (Negative); Urine Protein NEGATIVE (Negative); Urine Specific Gravity >=1.030 (1.005-1.030); Urine pH 5.5 (5.0-7.0)
[2020-10-26 05:49] LABS: Urine Bilirubin NEGATIVE (Negative); Urine Microscopic Reflex NO UMIC
[2020-10-26] MEDS: carvediloL 3.125 MG TAB PO SCH (06:00)
[2020-10-26] MEDS ORDERED: NA CHLORIDE 0.9% 250 ML ONE (06:31)
[2020-10-26] MEDS ORDERED: MAGNESIUM SULFATE 1 gm IVPB 1 GM/100 ML BAG IV ONE (09:00)
[2020-10-26] MEDS ORDERED: POTASSIUM CL SA 10 MEQ TAB PO ONE (09:00)
[2020-10-26] MEDS ORDERED: ASPIRIN EC 81 MG TAB PO SCH (09:00)
[2020-10-26] MEDS: ENOXAPARIN 40 MG/0.4 ML SQ SCH (09:54)
[2020-10-26] MEDS: lisinopriL 20 MG TAB PO SCH (09:54)
[2020-10-26 10:30] VITALS: O2SAT 97
[2020-10-26 12:21] VITALS: BP 130/64; TEMP 98.6
--- NOTE | 2020-10-26 12:42 | EKG ---
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
--- NOTE | 2020-10-26 13:54 | P.DS ---
Admission Date: 10/25/20 Discharge Date: 10/26/20 Primary Care Provider: LEISA Schrader Disposition: ROUTINE DISCHARGE Discharge Condition: FAIR Reason for Admission: chest pain rule out - Problems (1) Bradycardia Current Visit: Yes Status: Acute (2) Accelerated hypertension Current Visit: Yes Status: Acute (3) Chest pain Onset Date: 04/18/15 Current Visit: No Status: Acute Brief History of Present Illness: 69 y/o M w/ HTN who presents today with intermittent R sided and substernal chest pain. Chest pain partially relieved with Aleve. She had a cardiac workup about 2 - 3 years ago which per patient were unremarkable. Her initial troponin negative. Chest x-ray unremarkable. EKG showed sinus bradycardia and nonspecific ST-T changes. Patient hospitalized for ACS rule out. Hospital Course: Patient placed under observation on the medical floor. Troponin trended negative. Echocardiogram was done which was unremarkable. Patient seen in consultation by cardiology-Dr. Camarillo will follow her as an outpatient for further workup as needed. Her systolic blood pressure was initially elevated but this improved during the rest of the hospital stay. ACS has been ruled out. Patient is discharged to follow with Dr. Camarillo as an outpatient. Vital Signs/Physical Exam: Temp Pulse Resp BP Pulse Ox 98.6 F 55 16 130/64 98 10/26/20 12:00 10/26/20 12:00 10/26/20 12:00 10/26/20 12:00 10/26/20 12:00 General: Alert, In no apparent distress, Oriented x3 HEENT: Mucous membr. moist/pink Neck: JVD not distended Respiratory: Clear to auscultation bilaterally, Normal air movement Cardiovascular: No edema, Regular rate/rhythm, Normal S1 S2, No murmurs Gastrointestinal: Soft and benign, Non-distended, No tenderness Musculoskeletal: No swelling, No tenderness Integumentary: No breakdown Neurological: Normal strength at 5/5 x4 extr, Cranial nerves 3-12 intact Laboratory Data at Discharge: WBC 6.70 K/uL (4.3-10.9) 10/25/20 10:24 Hgb 12.8 g/dL (12.0-15.0) 10/25/20 10:24 Hct 40.6 % (36.0-45.0) 10/25/20 10:24 Plt Count 187 K/uL (152-406) 10/25/20 10:24 Sodium 145 mmol/L (136-145) 10/26/20 03:42 Potassium 3.8 mmol/L (3.5-5.1) 10/26/20 03:42 BUN 15 mg/dL (7-18) 10/26/20 03:42 Creatinine 0.81 mg/dL (0.55-1.3) 10/26/20 03:42 Glucose 97 mg/dL (74-106) 10/26/20 03:42 Phosphorus 3.8 mg/dL (2.5-4.9) 10/26/20 03:42 Magnesium 1.6 mg/dL (1.8-2.4) L 10/26/20 03:42 Troponin I < 0.02 ng/mL (0.0-0.045) 10/25/20 22:52 Triglycerides 158 mg/dL (<150) H 10/26/20 03:42 Cholesterol 125 mg/dL (<200) 10/26/20 03:42 HDL Cholesterol 30 mg/dL (40-60) L 10/26/20 03:42 Cholesterol/HDL Ratio 4.17 10/26/20 03:42 Home Medications: Aspirin Chewable [Aspirin Chewable*] 81 mg PO DAILY 04/17/15 Cholecalciferol (Vitamin D3) [Vitamin D 400 IU TAB*] 400 unit PO DAILY 10/02/17 Iron 65 mg PO DAILY 10/02/17 carvediloL [Coreg*] 6.25 mg PO BID 10/02/17 lisinopriL [Prinivil*] 10 mg PO DAILY 10/25/20 Diet: AHA Activity: Ad dionna Followup: Fitz Camarillo MD [ACTIVE - CAN ADMIT] - 1 Week Abi Pat NP [Primary Care Provider] -
--- NOTE | 2020-10-26 13:59 | ECHO ---
HEIGHT: 4 ft 10 in WEIGHT: 180 lb 0 oz DATE OF STUDY: 10/26/[address]: Nory Tsang 2-DIMENSIONAL: YES M.MODE: YES DOPPLER: YES COLOR FLOW: YES TDS: NO PORTABLE: NO DEFINITY: NO BUBBLE STUDY: NO DIAGNOSIS: CHEST PAIN CARDIAC HISTORY: CATHERIZATION: NO SURGERY: NO PROSTHETIC VALVE: NO PACEMAKER: NO MEASUREMENTS (cm) DIASTOLIC (NORMALS) SYSTOLIC (NORMALS) IVSd 1.1 (0.6-1.2) LA Diam 3.0 (1.9-4.0) LVEF 52% LVIDd 4.1 (3.5-5.7) LVIDs 3.0 (2.0-3.5) %FS 26% LVPWd 1.2 (0.6-1.2) Ao Diam 2.5 (2.0-3.7) 2 DIMENSIONAL ASSESSMENT: RIGHT ATRIUM: LEFT ATRIUM: RIGHT VENTRICLE: LEFT VENTRICLE: TRICUSPID VALVE: MITRAL VALVE: PULMONIC VALVE: AORTIC VALVE: PERICARDIAL EFFUSION: AORTIC ROOT: LEFT VENTRICULAR WALL MOTION: NORMAL. DOPPLER/COLOR FLOW: NORMAL. COMMENTS: NORMAL 2D ECHO WITH DOPPLER. NO WALL MOTION ABNORMALITY. NO EFFUSION. TECHNOLOGIST: SAE CASTRO
--- NOTE | 2020-10-27 12:30 | CON ---
Date of Consultation: 10/26/2020 Reason For Consultation: Chest pain. History Of Present Illness: Ms. Perry is a 69-year-old woman with a history of hypertension, who ca me in with hypertensive, blood pressure 183/77, atypical chest pain, midsternal, radiating to the alex k and the left side of the chest without any nausea, vomiting, diaphoresis, PND, orthopnea, pedal sarah ma, palpitation, or syncope. Pain has lasted for few hours with a normal EKG, normal troponin, hemal l BNP, and normal chest x-ray. The patient's pain was not exertional. Past Medical History: As stated above. Allergies: NONE. Review of Systems: Negative. Social History: Negative. Family History: Negative. Medications: Include aspirin, Coreg, and lisinopril. Physical Examination: Vital Signs: Stable. No acute distress. HEENT: Negative. Neck: Supple with no bruit. Chest: Clear. Cardiac: Revealed S4 gallops with regular rhythm and rate. Abdomen: Benign. Extremities: Revealed no clubbing, cyanosis, or edema. Diagnostic Data: Normal. Impression And Plan: Atypical chest pain in a patient with heart risk factors including hypertension , weight, and age. I am comfortable with her going home whenever it is okay with Dr. Cyr. I thin k the patient needs to have an outpatient MPI and see me in the near future. For now, we will contro l her blood pressure and maybe increase her Coreg and lisinopril. I suggested proton pump inhibitors in meanwhile. YOLETTE/ADRIANA Voice ID: [id number] Report ID: [id number]
== END 2020-10-26 14:28 | disposition home or self-care (01) ==
LOC: ER 09:49 → ERHOLD 11:59 → 2ND 16:15
PROVIDERS: ADMIT Internal Medicine; ATTEND Internal Medicine
DX: R07.89 Other chest pain (principal); I10 Essential (primary) hypertension; R00.1 Bradycardia, unspecified; Z79.82 Long term (current) use of aspirin; Z79.899 Other long term (current) drug therapy; Z83.3 Family history of diabetes mellitus
CPT/HCPCS: 93005; 93306; 85025; 80048 ×2; 36415; 83735; 84100; 80061; 84443; 81003; 83036; 84484 ×3; 82553 ×3; 84439; 83880; 71045; J1650 ×2; J3475; J7050; 99285; G0378